=== PATIENT | male | born 1985 | race African-American/Black ===

== ENCOUNTER 2021-12-01 20:27 | Emergency (ER) | payer MEDICAID ==
[~2021-12-01] VITALS: Ht 175.3 cm; Wt 64.0 kg
[2021-12-01] MEDS ORDERED: KETOROLAC 60MG/2ML VIAL IM ONE (22:45)
[2021-12-01] MEDS ORDERED: METOCLOPRAMIDE HCL 10MG TABLET PO ONE (22:45)
[2021-12-02 00:56] VITALS: BP 140/76
== END 2021-12-02 01:22 | disposition home or self-care (01) ==
LOC: ER 20:27
DX: G43.909 Migraine, unspecified, not intractable, without status migrainosus (principal); F32.9 Major depressive disorder, single episode, unspecified
CPT/HCPCS: 96372; 99283; J1885; J8597